=== PATIENT | male | born 1985 | race Caucasian/White ===

== ENCOUNTER 2017-01-28 15:57 | Inpatient (IN) | payer OTHER ==
[2017-01-28 17:55] VITALS: BMI 25.2
--- NOTE | 2017-01-28 20:13 | HP ---
Admission ROS [facility] Chief Complaint: Seeking rehab services Allergies/Adverse Reactions: Allergies Allergy/AdvReac Type Severity Reaction Status Date / Time No Known Allergies Allergy Verified 01/28/17 18:32 History of Present Illness: 31 y.o. man completed detox on 01/28/17 at [facility]. 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 Reports having a 1 year history drug abstinence. This is his first admission into rehab. Exam Limitations: No Limitations - Ebola screening Have you traveled outside of the country in the last 21 days: No Have you had contact with anyone from an Ebola affected area: No Have you been sick,other than usual withdrawal symptoms: No - Review of Systems Constitutional: Chills, Changes in sleep EENT: reports: No Symptoms Reported Respiratory: reports: No Symptoms reported Cardiac: reports: No Symptoms Reported GI: reports: No Symptoms Reported : reports: No Symptoms Reported Musculoskeletal: reports: No Symptoms Reported Integumentary: reports: No Symptoms Reported Neuro: reports: No Symptoms reported Endocrine: reports: No Symptoms Reported Hematology: reports: No Symptoms Reported Psychiatric: reports: Mood/Affect Appropiate, Orientated x3 Other Systems: Reviewed and Negative Patient History - Patient Medical History Hx Anemia: No Hx Asthma: No Hx Chronic Obstructive Pulmonary Disease (COPD): No Hx Cancer: No Hx Cardiac Disorders: No Hx Congestive Heart Failure: No Hx Hypertension: No Hx Pacemaker: No HX Cerebrovascular Accident: No Hx Seizures: No Hx Dementia: No Hx Diabetes: No Hx Gastrointestinal Disorders: No Hx Liver Disease: No Hx Genitourinary Disorders: No Hx Sexually Transmitted Disorders: No Hx Renal Disease (ESRD): No Hx Thyroid Disease: No Hx Human Immunodeficiency Virus (HIV): No Hx Hepatitis C: No Hx Depression: No Hx Suicide Attempt: No Hx Bipolar Disorder: No Hx Schizophrenia: No - Patient Surgical History Past Surgical History: No - PPD History Previous Implant?: No PPD to be Administered?: Yes - Reproductive History Patient is a Female of Child Bearing Age (11 -55 yrs old): No - Smoking Cessation Smoking history: Current every day smoker Have you smoked in the past 12 months: Yes Aproximately how many cigarettes per day: 10 Hx Chewing Tobacco Use: Yes Initiated information on smoking cessation: Yes 'Breaking Loose' booklet given: 01/28/17 - Substance & Tx. History Hx Alcohol Use: No Hx Substance Use: Yes Substance Use Type: Heroin, Opiates Hx Substance Use Treatment: Yes (Completed detox on 01/28/17 at [facility] ; never did rehab ) - Substances Abused Heroin Route: Inhalation Frequency: Daily Amount used: 4 Age of first use: 30 Date of Last Use: 01/25/17 Oxycontin Route: Oral Frequency: Daily Amount used: 50mg Age of first use: 20 Date of Last Use: 01/25/17 Alprazolam (Xanax) Route: Oral Frequency: Daily Amount used: 4mg Age of first use: 20 Date of Last Use: 01/26/17 Family Disease History - Family Disease History Family Disease History: Diabetes: Father (Opioid dependence ), Heart Disease: Grandparent, Other: Father Admission Physical Exam [facility] - Vital Signs Vital Signs: Vital Signs - 24 hr 01/28/17 17:52 Temperature 97.9 F Pulse Rate 69 Respiratory 18 Rate Blood Pressure 126/59 - Physical General Appearance: Yes: No Apparent Distress, Nourished, Appropriately Dressed HEENTM: Yes: Hearing grossly Normal, Normocephalic, Normal Voice Respiratory: Yes: Lungs Clear, Normal Breath Sounds, No Respiratory Distress, No Accessory Muscle Use Neck: Yes: No masses,lesions,Nodules, Trachea in good position Breast: Yes: Breast Exam Deferred Cardiology: Yes: Regular Rhythm, Regular Rate Abdominal: Yes: Normal Bowel Sounds, Non Tender Genitourinary: Yes: Other (No complaints reported) Back: Yes: Normal Inspection Musculoskeletal: Yes: full range of Motion, Gait Steady Extremities: Yes: Normal Capillary Refill, Normal Inspection, Normal Range of Motion, Non-Tender Neurological: Yes: 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 NML intact, Fully Oriented, Alert, Motor Strength 5/5, Normal Mood/Affect, Normal Response Integumentary: Yes: Normal Color, Dry, Warm Lymphatic: Yes: Within Normal Limits - Diagnostic (1) Opioid dependence with withdrawal Current Visit: Yes Status: Chronic (2) Sedative, hypnotic or anxiolytic dependence with withdrawal, uncomplicated Current Visit: Yes Status: Chronic (3) Nicotine dependence Current Visit: Yes Status: Chronic Cleared for Admission [facility] - Detox or Rehab [facility] Level of Care: Observation Bed Claeared for Rehab Admission: Yes [facility] Breath Alcohol Content Breath Alcohol Content: 0 Urine Drug Screen - Results Drug Screen Negative: No Urine Drug Screen Results: MTD-Methadone
[2017-01-28] MEDS ORDERED: IBUPROFEN 400 MG TABLET (FP) PO PRN (20:38)
[2017-01-28] MEDS ORDERED: ACETAMINOPHEN 325 MG TABLET (FP) PO PRN (20:38)
[2017-01-28] MEDS ORDERED: guaiFENesin/D-METHORPHAN HB 10 ML UNIT-DOSE CUPS PO PRN (20:38)
[2017-01-28] MEDS ORDERED: MAGNESIUM CITRATE 300 ML BOTTLE PO PRN (20:38)
[2017-01-28] MEDS ORDERED: diphenhydrAMINE HCL 50 MG CAPSULE PO PRN (20:38)
[2017-01-28] MEDS ORDERED: LOPERAMIDE HCL 2 MG CAPSULE PO PRN (20:38)
[2017-01-28] MEDS ORDERED: P-EPHED 60MG/TRIPROLIDI 2.5MG TABLET PO PRN (20:38)
[2017-01-28] MEDS ORDERED: MENTHOL/PHENOL 1 EACH UD MM PRN (20:38)
[2017-01-28] MEDS ORDERED: MAG HYDROX/AL HYDROX/SIMETH 30 ML UNIT-DOSE CUP PO PRN (20:38)
[2017-01-28] MEDS ORDERED: MAGNESIUM HYDROX 2400MG/30ML ORAL SUSPENSION 30 ML CUP PO PRN (20:38)
[2017-01-28] MEDS ORDERED: TUBERCULIN PPD 5 TU/0.1ML VIAL ID ONE (22:32)
[2017-01-28] MEDS: THIAMINE HCL 100 MG TABLET (FP) PO SCH (22:34)
[2017-01-28] MEDS: hydrOXYzine PAMOATE 50 MG CAPSULE (FP) PO PRN (22:34)
[2017-01-28 23:12] LABS: URINE APPEARANCE SLCLOUDY; URINE BILIRUBIN NEGATIVE (NEGATIVE); URINE BLOOD NEGATIVE (NEGATIVE); URINE COLOR YELLOW; URINE GLUCOSE (UA) NEGATIVE (NEGATIVE); URINE KETONE NEGATIVE (NEGATIVE); URINE LEUK ESTERASE NEGATIVE (NEGATIVE); URINE NITRITE NEGATIVE (NEGATIVE); URINE PROTEIN NEGATIVE (NEGATIVE); URINE UROBILINOGEN NEGATIVE mg/dL (0.2-1.0)
[2017-01-29] MEDS: PRENATAL VITAMINS W/ FOLIC ACID TABLET (FP) PO SCH (10:40)
[2017-01-29] MEDS: NICOTINE POLACRILEX 2 MG GUM BUC PRN (10:43)
[2017-01-29] MEDS: hydrOXYzine PAMOATE 50 MG CAPSULE (FP) PO PRN (10:44)
--- NOTE | 2017-01-29 12:01 | HP ---
Psychiatrist Admission - Data Date of interview: 01/29/17 Admission source: [facility] Identifying data: This is the first 5N inpatient rehabilitation admission for this 31 year old single male residing in senior living, unemployed and supported by [facility]. Medical History: Good health, smokes cigarrettes 10 a day. Psychiatric History: Patient reports was diagnosed as Bipolar disorder, first psychiatric hospitalization at age of 20, reports his mother called 911, he was admitted to [facility], reports 10 subsequent hospitalizations after, most recent on May 2016. He was on diferent psychotropics over theyars states he does not like all medications andsince 05/18 not on any medications and does not wish to restart . Physical/Sexual Abuse/Trauma History: Patient denies history of sexual, physical and verbal abuse. Additional Comment: Reports having a 1 year history drug abstinence. Vital Signs: Vital Signs - 24 hr 01/28/17 01/29/17 01/29/17 17:52 00:46 03:25 Temperature 97.9 F Pulse Rate 69 Respiratory 18 18 16 Rate Blood Pressure 126/59 01/29/17 06:46 Temperature 97.4 F L Pulse Rate 69 Respiratory 16 Rate Blood Pressure 114/66 Allergies/Adverse Reactions: Allergies Allergy/AdvReac Type Severity Reaction Status Date / Time No Known Allergies Allergy Verified 01/28/17 18:32 Date of last physical exam: 01/28/17 Concur with the findings of this exam: Yes - Substance Abuse/Tx History Hx Alcohol Use: No Hx Substance Use: Yes Substance Use Type: Heroin (4 bags a day), Opiates (oxycodone) Hx Substance Use Treatment: Yes (detox, this the first rehab.) - Admission Criteria Previous failed treatment: Yes Poor recovery environment: Yes Comorbidities: Yes Lacks judgement: Yes Mental Status Exam - Mental Status Exam Alert and Oriented to: Time, Place, Person Cognitive Function: Grossly Intact Patient Appearance: Disheveled Mood: Hopeful Affect: Appropriate, Mood Congruent, Normal Range Patient Behavior: Appropriate, Cooperative Speech Pattern: Clear Voice Loudness: Normal Thought Process: Goal Oriented Thought Disorder: Not Present Hallucinations: Denies Suicidal Ideation: Denies Homicidal Ideation: Denies Insight/Judgement: Fair Sleep: Fair Appetite: Good Muscle strength/Tone: Normal Gait/Station: Normal Psychiatric Findings - Problem List ([place] 1, 2,3) (1) Nicotine dependence Current Visit: Yes Status: Chronic (2) Opioid dependence Current Visit: Yes Status: Acute (3) Sedative dependence Current Visit: Yes Status: Acute (4) Bipolar disorder Current Visit: Yes Status: Acute - Initial Treatment Plan Initial Treatment Plan: Will monitor progress as needed.
--- NOTE | 2017-01-29 12:33 | PN ---
[facility] Progress Note Note: withdrawal symptom,flexeril 10 mgs po tid prn,clonidine 0.1 mg po bid for 72 hrs
[2017-01-29] MEDS: cloNIDine HCL 0.1 MG TABLET PO SCH ×2 (13:13→21:37)
[2017-01-29] MEDS: CYCLOBENZAPRINE HCL 10 MG TABLET (FP) PO PRN ×2 (13:14→21:38)
[2017-01-29 15:28] LABS: MCH 30.2 pg (25.7-33.7); MCHC 33.5 g/dl (32.0-35.9); MEAN CELL VOLUME 90.3 fl (80-96); MEAN PLT VOLUME 8.9 fl (7.5-11.1); PLATELET COUNT 260 K/MM3 (134-434); RDW 12.7 % (11.9-15.9); WHITE BLOOD COUNT 5.9 K/mm3 (4.0-10.0)
[2017-01-29 16:02] LABS: ALBUMIN 4.1 g/dl (3.4-5.0); ALK PHOS 84 U/L (45-117); ANION GAP 6 (8-16); BILIRUBIN,TOTAL 0.3 mg/dL (0.2-1.0); CALCIUM 9.3 mg/dL (8.5-10.1); CO2 33 mmol/L (21-32); GLUCOSE,RANDOM 94 mg/dL (74-106); SGOT/AST 11 U/L (15-37); SGPT/ALT 19 U/L (12-78); TOT PROT 7.2 g/dl (6.4-8.2)
[2017-01-29] MEDS: THIAMINE HCL 100 MG TABLET (FP) PO SCH (21:37)
[2017-01-30] MEDS: PRENATAL VITAMINS W/ FOLIC ACID TABLET (FP) PO SCH (10:13)
[2017-01-30] MEDS: cloNIDine HCL 0.1 MG TABLET PO SCH ×2 (10:13→21:44)
[2017-01-30] MEDS: CYCLOBENZAPRINE HCL 10 MG TABLET (FP) PO PRN ×2 (10:14→21:46)
[2017-01-30] MEDS: THIAMINE HCL 100 MG TABLET (FP) PO SCH (21:44)
[2017-01-31] MEDS: CYCLOBENZAPRINE HCL 10 MG TABLET (FP) PO PRN ×2 (10:27→22:12)
[2017-01-31] MEDS: PRENATAL VITAMINS W/ FOLIC ACID TABLET (FP) PO SCH (10:27)
[2017-01-31] MEDS: cloNIDine HCL 0.1 MG TABLET PO SCH ×2 (10:27→22:10)
[2017-01-31] MEDS: hydrOXYzine PAMOATE 50 MG CAPSULE (FP) PO PRN (10:29)
[2017-01-31] MEDS: NICOTINE POLACRILEX 2 MG GUM BUC PRN (10:29)
--- NOTE | 2017-01-31 11:35 | EKG ---
Test Reason : Blood Pressure : / mmHG Vent. Rate : 060 BPM Atrial Rate : 060 BPM P-R Int : 132 ms QRS Dur : 096 ms QT Int : 390 ms P-R-T Axes : 049 052 -05 degrees QTc Int : 390 ms NORMAL SINUS RHYTHM T WAVE ABNORMALITY, CONSIDER INFEROLATERAL ISCHEMIA ABNORMAL ECG NO PREVIOUS ECGS AVAILABLE Confirmed by PAULIE ALDRICH MD ([id number]) on 01/31/2017 11:35:26 AM Referred By: Confirmed By:PAULIE ALDRICH MD
[2017-01-31] MEDS: THIAMINE HCL 100 MG TABLET (FP) PO SCH (22:10)
[2017-02-01] MEDS: hydrOXYzine PAMOATE 50 MG CAPSULE (FP) PO PRN ×3 (06:29→21:37)
[2017-02-01] MEDS: PRENATAL VITAMINS W/ FOLIC ACID TABLET (FP) PO SCH (10:34)
[2017-02-01] MEDS: cloNIDine HCL 0.1 MG TABLET PO SCH (10:34)
[2017-02-01] MEDS: CYCLOBENZAPRINE HCL 10 MG TABLET (FP) PO PRN ×2 (10:35→21:37)
[2017-02-01] MEDS: THIAMINE HCL 100 MG TABLET (FP) PO SCH (21:37)
[2017-02-02] MEDS: PRENATAL VITAMINS W/ FOLIC ACID TABLET (FP) PO SCH (10:21)
[2017-02-02] MEDS: hydrOXYzine PAMOATE 50 MG CAPSULE (FP) PO PRN ×2 (10:22→18:12)
[2017-02-02] MEDS: PANTOPRAZOLE 40 MG TABLET (FP) PO SCH (18:45)
[2017-02-02] MEDS: THIAMINE HCL 100 MG TABLET (FP) PO SCH (21:35)
[2017-02-02] MEDS: cloNIDine HCL 0.1 MG TABLET PO SCH (21:35)
[2017-02-02] MEDS: CYCLOBENZAPRINE HCL 10 MG TABLET (FP) PO SCH (21:35)
[2017-02-02] MEDS: NAPROXEN 500 MG TABLET (FP) PO SCH (21:35)
[2017-02-02] MEDS: NICOTINE POLACRILEX 2 MG GUM BUC PRN (21:37)
[2017-02-03] MEDS: CYCLOBENZAPRINE HCL 10 MG TABLET (FP) PO SCH ×3 (06:42→21:25)
[2017-02-03] MEDS: PRENATAL VITAMINS W/ FOLIC ACID TABLET (FP) PO SCH (10:22)
[2017-02-03] MEDS: PANTOPRAZOLE 40 MG TABLET (FP) PO SCH (10:23)
[2017-02-03] MEDS: cloNIDine HCL 0.1 MG TABLET PO SCH ×2 (10:23→21:25)
[2017-02-03] MEDS: NAPROXEN 500 MG TABLET (FP) PO SCH ×2 (10:23→21:25)
[2017-02-03] MEDS: NICOTINE POLACRILEX 2 MG GUM BUC PRN (14:45)
[2017-02-03] MEDS: THIAMINE HCL 100 MG TABLET (FP) PO SCH (21:25)
[2017-02-04] MEDS: CYCLOBENZAPRINE HCL 10 MG TABLET (FP) PO SCH ×3 (06:30→21:47)
[2017-02-04] MEDS: PRENATAL VITAMINS W/ FOLIC ACID TABLET (FP) PO SCH (10:18)
[2017-02-04] MEDS: PANTOPRAZOLE 40 MG TABLET (FP) PO SCH (10:18)
[2017-02-04] MEDS: NAPROXEN 500 MG TABLET (FP) PO SCH ×2 (10:18→21:47)
[2017-02-04] MEDS: cloNIDine HCL 0.1 MG TABLET PO SCH ×2 (11:00→21:48)
[2017-02-04] MEDS: THIAMINE HCL 100 MG TABLET (FP) PO SCH (21:47)
[2017-02-04] MEDS: NICOTINE POLACRILEX 2 MG GUM BUC PRN (21:48)
[2017-02-05] MEDS: CYCLOBENZAPRINE HCL 10 MG TABLET (FP) PO SCH ×3 (06:15→21:47)
[2017-02-05] MEDS: PANTOPRAZOLE 40 MG TABLET (FP) PO SCH (10:30)
[2017-02-05] MEDS: NAPROXEN 500 MG TABLET (FP) PO SCH ×2 (10:30→21:47)
[2017-02-05] MEDS: PRENATAL VITAMINS W/ FOLIC ACID TABLET (FP) PO SCH (10:30)
[2017-02-05] MEDS: cloNIDine HCL 0.1 MG TABLET PO SCH ×2 (10:30→21:47)
[2017-02-05] MEDS: NICOTINE POLACRILEX 2 MG GUM BUC PRN ×2 (10:32→21:48)
[2017-02-05] MEDS ORDERED: cloNIDine HCL 0.1 MG TABLET PO SCH (14:15)
[2017-02-05] MEDS: THIAMINE HCL 100 MG TABLET (FP) PO SCH (21:47)
[2017-02-06] MEDS: hydrOXYzine PAMOATE 50 MG CAPSULE (FP) PO PRN ×2 (01:01→23:52)
[2017-02-06] MEDS: CYCLOBENZAPRINE HCL 10 MG TABLET (FP) PO SCH ×3 (06:23→21:39)
[2017-02-06] MEDS: PANTOPRAZOLE 40 MG TABLET (FP) PO SCH (10:30)
[2017-02-06] MEDS: PRENATAL VITAMINS W/ FOLIC ACID TABLET (FP) PO SCH (10:30)
[2017-02-06] MEDS: NAPROXEN 500 MG TABLET (FP) PO SCH ×2 (10:30→21:39)
[2017-02-06] MEDS: cloNIDine HCL 0.1 MG TABLET PO SCH ×2 (10:30→21:39)
[2017-02-06] MEDS: NICOTINE POLACRILEX 2 MG GUM BUC PRN ×3 (10:32→21:40)
[2017-02-06] MEDS: COLLOIDAL OATMEAL 1 BAR EACH TP PRN (14:34)
[2017-02-06] MEDS: THIAMINE HCL 100 MG TABLET (FP) PO SCH (21:39)
[2017-02-07] MEDS: CYCLOBENZAPRINE HCL 10 MG TABLET (FP) PO SCH ×3 (06:30→21:40)
[2017-02-07] MEDS: NICOTINE POLACRILEX 2 MG GUM BUC PRN ×4 (06:31→21:44)
[2017-02-07] MEDS: cloNIDine HCL 0.1 MG TABLET PO SCH ×2 (11:00→21:41)
[2017-02-07] MEDS: NAPROXEN 500 MG TABLET (FP) PO SCH ×2 (11:00→21:41)
[2017-02-07] MEDS: PRENATAL VITAMINS W/ FOLIC ACID TABLET (FP) PO SCH (11:00)
[2017-02-07] MEDS: PANTOPRAZOLE 40 MG TABLET (FP) PO SCH (11:00)
[2017-02-07] MEDS: THIAMINE HCL 100 MG TABLET (FP) PO SCH (21:41)
[2017-02-07] MEDS: hydrOXYzine PAMOATE 50 MG CAPSULE (FP) PO PRN (21:43)
[2017-02-08] MEDS: NICOTINE POLACRILEX 2 MG GUM BUC PRN ×2 (06:46→10:32)
[2017-02-08] MEDS: CYCLOBENZAPRINE HCL 10 MG TABLET (FP) PO SCH ×3 (06:46→21:42)
[2017-02-08] MEDS: NAPROXEN 500 MG TABLET (FP) PO SCH ×2 (10:30→21:42)
[2017-02-08] MEDS: PANTOPRAZOLE 40 MG TABLET (FP) PO SCH (10:30)
[2017-02-08] MEDS: cloNIDine HCL 0.1 MG TABLET PO SCH ×2 (10:30→21:42)
[2017-02-08] MEDS: PRENATAL VITAMINS W/ FOLIC ACID TABLET (FP) PO SCH (10:30)
[2017-02-08] MEDS: NICOTINE POLACRILEX 4 MG GUM BUC PRN ×2 (14:15→21:44)
[2017-02-08] MEDS: THIAMINE HCL 100 MG TABLET (FP) PO SCH (21:42)
[2017-02-08] MEDS: hydrOXYzine PAMOATE 50 MG CAPSULE (FP) PO PRN (21:43)
[2017-02-09] MEDS: CYCLOBENZAPRINE HCL 10 MG TABLET (FP) PO SCH ×3 (06:08→21:43)
[2017-02-09] MEDS: PRENATAL VITAMINS W/ FOLIC ACID TABLET (FP) PO SCH (10:25)
[2017-02-09] MEDS: NICOTINE POLACRILEX 4 MG GUM BUC PRN ×3 (10:25→21:45)
[2017-02-09] MEDS: PANTOPRAZOLE 40 MG TABLET (FP) PO SCH (10:25)
[2017-02-09] MEDS: cloNIDine HCL 0.1 MG TABLET PO SCH ×2 (10:25→21:43)
[2017-02-09] MEDS: NAPROXEN 500 MG TABLET (FP) PO SCH ×2 (10:25→21:43)
[2017-02-09] MEDS: THIAMINE HCL 100 MG TABLET (FP) PO SCH (21:43)
[2017-02-09] MEDS: hydrOXYzine PAMOATE 50 MG CAPSULE (FP) PO PRN (21:44)
[2017-02-10] MEDS: NICOTINE POLACRILEX 4 MG GUM BUC PRN ×3 (06:17→21:41)
[2017-02-10] MEDS: CYCLOBENZAPRINE HCL 10 MG TABLET (FP) PO SCH ×3 (06:17→21:40)
[2017-02-10] MEDS: NAPROXEN 500 MG TABLET (FP) PO SCH ×2 (10:11→21:40)
[2017-02-10] MEDS: PRENATAL VITAMINS W/ FOLIC ACID TABLET (FP) PO SCH (10:11)
[2017-02-10] MEDS: PANTOPRAZOLE 40 MG TABLET (FP) PO SCH (10:11)
[2017-02-10] MEDS: cloNIDine HCL 0.1 MG TABLET PO SCH ×2 (10:11→21:40)
[2017-02-10] MEDS: THIAMINE HCL 100 MG TABLET (FP) PO SCH (21:40)
[2017-02-11] MEDS: hydrOXYzine PAMOATE 50 MG CAPSULE (FP) PO PRN (00:37)
[2017-02-11] MEDS: CYCLOBENZAPRINE HCL 10 MG TABLET (FP) PO SCH ×3 (06:38→21:53)
[2017-02-11] MEDS: NICOTINE POLACRILEX 4 MG GUM BUC PRN ×4 (06:39→21:55)
[2017-02-11] MEDS: NAPROXEN 500 MG TABLET (FP) PO SCH ×2 (10:49→21:54)
[2017-02-11] MEDS: cloNIDine HCL 0.1 MG TABLET PO SCH ×2 (10:49→21:53)
[2017-02-11] MEDS: PANTOPRAZOLE 40 MG TABLET (FP) PO SCH (10:49)
[2017-02-11] MEDS: PRENATAL VITAMINS W/ FOLIC ACID TABLET (FP) PO SCH (10:49)
[2017-02-11] MEDS: THIAMINE HCL 100 MG TABLET (FP) PO SCH (21:53)
[2017-02-12] MEDS: hydrOXYzine PAMOATE 50 MG CAPSULE (FP) PO PRN ×2 (00:55→23:46)
[2017-02-12] MEDS: NICOTINE POLACRILEX 4 MG GUM BUC PRN ×6 (00:55→23:47)
[2017-02-12] MEDS: CYCLOBENZAPRINE HCL 10 MG TABLET (FP) PO SCH ×3 (06:27→21:35)
[2017-02-12] MEDS: NAPROXEN 500 MG TABLET (FP) PO SCH ×2 (10:23→21:36)
[2017-02-12] MEDS: cloNIDine HCL 0.1 MG TABLET PO SCH ×2 (10:23→21:35)
[2017-02-12] MEDS: PRENATAL VITAMINS W/ FOLIC ACID TABLET (FP) PO SCH (10:23)
[2017-02-12] MEDS: PANTOPRAZOLE 40 MG TABLET (FP) PO SCH (10:23)
[2017-02-12] MEDS: COLLOIDAL OATMEAL 1 BAR EACH TP PRN (18:26)
[2017-02-12] MEDS: THIAMINE HCL 100 MG TABLET (FP) PO SCH (21:35)
[2017-02-13] MEDS: CYCLOBENZAPRINE HCL 10 MG TABLET (FP) PO SCH ×3 (06:35→21:37)
[2017-02-13] MEDS: NICOTINE POLACRILEX 4 MG GUM BUC PRN ×5 (06:36→23:52)
[2017-02-13] MEDS: PRENATAL VITAMINS W/ FOLIC ACID TABLET (FP) PO SCH (10:26)
[2017-02-13] MEDS: cloNIDine HCL 0.1 MG TABLET PO SCH ×2 (10:26→21:37)
[2017-02-13] MEDS: PANTOPRAZOLE 40 MG TABLET (FP) PO SCH (10:26)
[2017-02-13] MEDS: NAPROXEN 500 MG TABLET (FP) PO SCH ×2 (10:26→21:37)
[2017-02-13] MEDS: THIAMINE HCL 100 MG TABLET (FP) PO SCH (21:37)
[2017-02-13] MEDS: hydrOXYzine PAMOATE 50 MG CAPSULE (FP) PO PRN (23:52)
[2017-02-14] MEDS: CYCLOBENZAPRINE HCL 10 MG TABLET (FP) PO SCH ×3 (06:37→21:25)
[2017-02-14] MEDS: NICOTINE POLACRILEX 4 MG GUM BUC PRN ×4 (06:37→21:25)
[2017-02-14] MEDS: PANTOPRAZOLE 40 MG TABLET (FP) PO SCH (10:53)
[2017-02-14] MEDS: NAPROXEN 500 MG TABLET (FP) PO SCH ×2 (10:54→21:25)
[2017-02-14] MEDS: cloNIDine HCL 0.1 MG TABLET PO SCH ×2 (10:54→21:25)
[2017-02-14] MEDS: PRENATAL VITAMINS W/ FOLIC ACID TABLET (FP) PO SCH (10:54)
[2017-02-14] MEDS: THIAMINE HCL 100 MG TABLET (FP) PO SCH (21:25)
[2017-02-15] MEDS: CYCLOBENZAPRINE HCL 10 MG TABLET (FP) PO SCH ×3 (06:18→21:51)
[2017-02-15] MEDS: PANTOPRAZOLE 40 MG TABLET (FP) PO SCH (10:31)
[2017-02-15] MEDS: cloNIDine HCL 0.1 MG TABLET PO SCH ×2 (10:31→21:51)
[2017-02-15] MEDS: NAPROXEN 500 MG TABLET (FP) PO SCH ×2 (10:31→21:51)
[2017-02-15] MEDS: PRENATAL VITAMINS W/ FOLIC ACID TABLET (FP) PO SCH (10:31)
[2017-02-15] MEDS: NICOTINE POLACRILEX 4 MG GUM BUC PRN ×4 (10:32→23:53)
[2017-02-15] MEDS: THIAMINE HCL 100 MG TABLET (FP) PO SCH (21:51)
[2017-02-15] MEDS: hydrOXYzine PAMOATE 50 MG CAPSULE (FP) PO PRN (23:52)
[2017-02-16] MEDS: CYCLOBENZAPRINE HCL 10 MG TABLET (FP) PO SCH ×3 (06:50→21:08)
[2017-02-16] MEDS: NICOTINE POLACRILEX 4 MG GUM BUC PRN ×4 (06:51→21:09)
[2017-02-16] MEDS: NAPROXEN 500 MG TABLET (FP) PO SCH ×2 (10:27→21:08)
[2017-02-16] MEDS: cloNIDine HCL 0.1 MG TABLET PO SCH ×2 (10:27→21:08)
[2017-02-16] MEDS: PANTOPRAZOLE 40 MG TABLET (FP) PO SCH (10:27)
[2017-02-16] MEDS: PRENATAL VITAMINS W/ FOLIC ACID TABLET (FP) PO SCH (10:27)
[2017-02-16] MEDS: THIAMINE HCL 100 MG TABLET (FP) PO SCH (21:08)
[2017-02-17] MEDS: CYCLOBENZAPRINE HCL 10 MG TABLET (FP) PO SCH ×3 (06:26→21:09)
[2017-02-17] MEDS: NICOTINE POLACRILEX 4 MG GUM BUC PRN ×5 (06:26→23:53)
[2017-02-17] MEDS: NAPROXEN 500 MG TABLET (FP) PO SCH ×2 (10:08→21:09)
[2017-02-17] MEDS: PRENATAL VITAMINS W/ FOLIC ACID TABLET (FP) PO SCH (10:08)
[2017-02-17] MEDS: PANTOPRAZOLE 40 MG TABLET (FP) PO SCH (10:08)
[2017-02-17] MEDS: cloNIDine HCL 0.1 MG TABLET PO SCH ×2 (10:09→21:09)
[2017-02-17] MEDS: hydrOXYzine PAMOATE 50 MG CAPSULE (FP) PO PRN ×2 (15:40→23:52)
[2017-02-17] MEDS: THIAMINE HCL 100 MG TABLET (FP) PO SCH (21:09)
[2017-02-18] MEDS: CYCLOBENZAPRINE HCL 10 MG TABLET (FP) PO SCH ×3 (06:14→21:09)
[2017-02-18] MEDS: NICOTINE POLACRILEX 4 MG GUM BUC PRN ×5 (06:15→21:11)
[2017-02-18] MEDS: PANTOPRAZOLE 40 MG TABLET (FP) PO SCH (09:54)
[2017-02-18] MEDS: cloNIDine HCL 0.1 MG TABLET PO SCH ×2 (09:54→21:09)
[2017-02-18] MEDS: PRENATAL VITAMINS W/ FOLIC ACID TABLET (FP) PO SCH (09:55)
[2017-02-18] MEDS: NAPROXEN 500 MG TABLET (FP) PO SCH ×2 (09:55→21:09)
[2017-02-18] MEDS: hydrOXYzine PAMOATE 50 MG CAPSULE (FP) PO PRN (18:31)
[2017-02-18] MEDS: THIAMINE HCL 100 MG TABLET (FP) PO SCH (21:09)
[2017-02-19] MEDS: CYCLOBENZAPRINE HCL 10 MG TABLET (FP) PO SCH ×3 (06:31→21:07)
[2017-02-19] MEDS: NICOTINE POLACRILEX 4 MG GUM BUC PRN ×3 (06:32→21:08)
[2017-02-19] MEDS: NAPROXEN 500 MG TABLET (FP) PO SCH ×2 (09:58→21:07)
[2017-02-19] MEDS: cloNIDine HCL 0.1 MG TABLET PO SCH ×2 (09:58→21:07)
[2017-02-19] MEDS: PRENATAL VITAMINS W/ FOLIC ACID TABLET (FP) PO SCH (09:58)
[2017-02-19] MEDS: PANTOPRAZOLE 40 MG TABLET (FP) PO SCH (09:58)
[2017-02-19] MEDS: COLLOIDAL OATMEAL 1 BAR EACH TP PRN (10:46)
[2017-02-19] MEDS: THIAMINE HCL 100 MG TABLET (FP) PO SCH (21:07)
[2017-02-20] MEDS: CYCLOBENZAPRINE HCL 10 MG TABLET (FP) PO SCH ×3 (06:28→21:04)
[2017-02-20] MEDS: NICOTINE POLACRILEX 4 MG GUM BUC PRN ×5 (06:28→21:06)
[2017-02-20] MEDS: PRENATAL VITAMINS W/ FOLIC ACID TABLET (FP) PO SCH (09:51)
[2017-02-20] MEDS: PANTOPRAZOLE 40 MG TABLET (FP) PO SCH (09:51)
[2017-02-20] MEDS: cloNIDine HCL 0.1 MG TABLET PO SCH ×2 (09:51→21:04)
[2017-02-20] MEDS: NAPROXEN 500 MG TABLET (FP) PO SCH ×2 (09:51→21:04)
[2017-02-20] MEDS: hydrOXYzine PAMOATE 50 MG CAPSULE (FP) PO PRN ×2 (17:43→21:05)
[2017-02-20] MEDS: THIAMINE HCL 100 MG TABLET (FP) PO SCH (21:04)
[2017-02-21] MEDS: CYCLOBENZAPRINE HCL 10 MG TABLET (FP) PO SCH ×3 (06:20→21:16)
[2017-02-21] MEDS: NICOTINE POLACRILEX 4 MG GUM BUC PRN ×5 (06:20→21:17)
[2017-02-21] MEDS: cloNIDine HCL 0.1 MG TABLET PO SCH ×2 (09:52→21:16)
[2017-02-21] MEDS: PRENATAL VITAMINS W/ FOLIC ACID TABLET (FP) PO SCH (09:52)
[2017-02-21] MEDS: PANTOPRAZOLE 40 MG TABLET (FP) PO SCH (09:52)
[2017-02-21] MEDS: NAPROXEN 500 MG TABLET (FP) PO SCH ×2 (09:52→21:15)
[2017-02-21] MEDS: hydrOXYzine PAMOATE 50 MG CAPSULE (FP) PO PRN (17:35)
[2017-02-21] MEDS: THIAMINE HCL 100 MG TABLET (FP) PO SCH (21:16)
[2017-02-22] MEDS: CYCLOBENZAPRINE HCL 10 MG TABLET (FP) PO SCH ×3 (06:31→21:07)
[2017-02-22] MEDS: NICOTINE POLACRILEX 4 MG GUM BUC PRN ×4 (06:31→21:09)
[2017-02-22] MEDS: NAPROXEN 500 MG TABLET (FP) PO SCH ×2 (09:50→21:07)
[2017-02-22] MEDS: cloNIDine HCL 0.1 MG TABLET PO SCH ×2 (09:50→21:07)
[2017-02-22] MEDS: PRENATAL VITAMINS W/ FOLIC ACID TABLET (FP) PO SCH (09:51)
[2017-02-22] MEDS: PANTOPRAZOLE 40 MG TABLET (FP) PO SCH (09:51)
[2017-02-22] MEDS: THIAMINE HCL 100 MG TABLET (FP) PO SCH (21:07)
[2017-02-23] MEDS: CYCLOBENZAPRINE HCL 10 MG TABLET (FP) PO SCH ×3 (06:34→21:55)
[2017-02-23] MEDS: NICOTINE POLACRILEX 4 MG GUM BUC PRN ×5 (06:34→21:57)
[2017-02-23] MEDS: PANTOPRAZOLE 40 MG TABLET (FP) PO SCH (09:55)
[2017-02-23] MEDS: PRENATAL VITAMINS W/ FOLIC ACID TABLET (FP) PO SCH (09:55)
[2017-02-23] MEDS: cloNIDine HCL 0.1 MG TABLET PO SCH ×2 (09:55→21:55)
[2017-02-23] MEDS: NAPROXEN 500 MG TABLET (FP) PO SCH ×2 (09:55→21:55)
[2017-02-23] MEDS: COLLOIDAL OATMEAL 1 BAR EACH TP PRN (14:18)
[2017-02-23] MEDS: hydrOXYzine PAMOATE 50 MG CAPSULE (FP) PO PRN (17:41)
[2017-02-23] MEDS: THIAMINE HCL 100 MG TABLET (FP) PO SCH (21:55)
[2017-02-24] MEDS: CYCLOBENZAPRINE HCL 10 MG TABLET (FP) PO SCH ×3 (06:27→21:14)
[2017-02-24] MEDS: NICOTINE POLACRILEX 4 MG GUM BUC PRN ×5 (06:28→21:15)
[2017-02-24] MEDS: cloNIDine HCL 0.1 MG TABLET PO SCH ×2 (09:41→21:14)
[2017-02-24] MEDS: NAPROXEN 500 MG TABLET (FP) PO SCH ×2 (09:41→21:14)
[2017-02-24] MEDS: PANTOPRAZOLE 40 MG TABLET (FP) PO SCH (09:41)
[2017-02-24] MEDS: PRENATAL VITAMINS W/ FOLIC ACID TABLET (FP) PO SCH (09:41)
[2017-02-24] MEDS: hydrOXYzine PAMOATE 50 MG CAPSULE (FP) PO PRN (18:03)
[2017-02-24] MEDS: THIAMINE HCL 100 MG TABLET (FP) PO SCH (21:14)
[2017-02-25] MEDS: CYCLOBENZAPRINE HCL 10 MG TABLET (FP) PO SCH (06:03)
[2017-02-25] MEDS: NICOTINE POLACRILEX 4 MG GUM BUC PRN (06:03)
[2017-02-25 06:26] VITALS: BP 114/62; PULSE 95; TEMP 98.1
[2017-02-25] MEDS: PANTOPRAZOLE 40 MG TABLET (FP) PO SCH (10:05)
[2017-02-25] MEDS: cloNIDine HCL 0.1 MG TABLET PO SCH (10:05)
[2017-02-25] MEDS: PRENATAL VITAMINS W/ FOLIC ACID TABLET (FP) PO SCH (10:05)
[2017-02-25] MEDS: NAPROXEN 500 MG TABLET (FP) PO SCH (10:05)
--- NOTE | 2017-02-25 10:16 | PN ---
Psychiatric Progress Note Vital Signs: Vital Signs Period Temp Pulse Resp BP Sys/Puentes Pulse Ox Last 24 Hr 98.1 F 95-97 16-18 114-131/62-72 Date of Session: 02/25/17 Chief Complaint:: discharge visit HPI: Patient has addressed opoiod, benzo, cocaine, nicotine dependence comorbid Bipolar disorder. ROS: WNL Current Medications: Active Medications Generic Name Dose Route Start Last Admin Trade Name Freq PRN Reason Stop Dose Admin Acetaminophen 650 mg 01/28/17 20:38 02/02/17 18:12 Tylenol - PO 650 mg Q4H PRN Administration PAIN Al Hydroxide/Mg Hydroxide 30 ml 01/28/17 20:38 02/07/17 14:27 Mylanta Oral Suspension - PO 30 ml Q6H PRN Administration DYSPEPSIA Clonidine 0.1 mg 02/05/17 22:00 02/25/17 10:05 Catapres - PO 0.1 mg BID CHRISS Administration Colloidal Oatmeal 1 applic 02/06/17 11:06 02/23/17 14:18 Aveeno Soap - TP 1 applic DAILY PRN Administration HYGEINE Cyclobenzaprine HCl 10 mg 02/02/17 22:00 02/25/17 06:03 Flexeril - PO 10 mg TID CHRISS Administration Diphenhydramine HCl 50 mg 01/28/17 20:38 Benadryl - PO HSMR1 PRN INSOMNIA Eucalyptus/Menthol/Phenol/Sorbitol 1 each 01/28/17 20:38 Cepastat Lozenge - MM Q4H PRN SORE THROAT Guaifenesin 10 ml 01/28/17 20:38 Robitussin Dm - PO Q6H PRN COUGH Hydroxyzine Pamoate 50 mg 01/28/17 20:38 02/24/17 18:03 Vistaril - PO 50 mg Q4H PRN Administration AGITATION Loperamide HCl 4 mg 01/28/17 20:38 Imodium - PO Q6H PRN DIARRHEA Magnesium Citrate 300 ml 01/28/17 20:38 Citroma - PO Q48H PRN CONSTIPATION Magnesium Hydroxide 30 ml 01/28/17 20:38 Milk Of Magnesia - PO DAILY PRN CONSTIPATION Naproxen 500 mg 02/02/17 22:00 02/25/17 10:05 Naprosyn - PO 500 mg BID CHRISS Administration Nicotine Polacrilex 4 mg 02/08/17 11:53 02/25/17 06:03 Nicorette Gum - BUC 4 mg Q2H PRN Administration NICOTINE REPLACEMENT RX Pantoprazole Sodium 40 mg 02/02/17 18:30 02/25/17 10:05 Protonix - PO 40 mg DAILY CHRISS Administration Multivit/Folic Acid/Iron 1 tab 01/29/17 10:00 02/25/17 10:05 Vitamins (Sjr) - PO 1 tab DAILY CHRISS Administration Pseudoephedrine/Triprolidine 1 combo 01/28/17 20:38 Actifed - PO TID PRN NASAL CONGESTION Thiamine HCl 100 mg 01/28/17 22:00 02/24/17 21:14 Vitamin B1 - PO 100 mg HS CHRISS Administration Current Side Effect: No Lab tests ordered: No Lab tests reviewed: Yes Provider note:: Patient has completed today this treatment and met his identified goals, will continue to address his issues at [facility] detention inpatient treatment program.He understands the negative consequences of using drugs on major life areas including physical and mental health. Coping skills and utilization of support system to prevent relapses have been discussed with the patient. Patient is stable for discharge today. Total face to face time:: 20 Mental Status Exam - Mental Status Exam Alert and Oriented to: Time, Place, Person Cognitive Function: Good Patient Appearance: Well Groomed Mood: Hopeful Affect: Appropriate, Mood Congruent Patient Behavior: Appropriate, Cooperative Speech Pattern: Clear, Appropriate Voice Loudness: Normal Thought Process: Intact, Goal Oriented Thought Disorder: Not Present Hallucinations: Denies Suicidal Ideation: Denies Homicidal Ideation: Denies Insight/Judgement: Fair Sleep: Fair Appetite: Good Muscle strength/Tone: Normal Gait/Station: Normal Psychiatric Treatment Plan - Problem List (1) Nicotine dependence Current Visit: Yes (2) Opioid dependence Current Visit: Yes (3) Sedative dependence Current Visit: Yes (4) Bipolar disorder Current Visit: Yes
== END 2017-02-25 11:17 | disposition home or self-care (01) | DRG 895 ==
LOC: YASAS 15:57 → Y5N 20:14
PROVIDERS: ADMIT Psychiatry & Neurology Psychiatry; ATTEND Psychiatry & Neurology Psychiatry
PROC: HZ42ZZZ Group Counseling for Substance Abuse Treatment, Cognitive-Behavioral (ICD-10-PCS; principal; 2017-01-28)
DX: F11.23 Opioid dependence with withdrawal (principal); F13.230 Sedative, hypnotic or anxiolytic dependence with withdrawal, uncomplicated; F17.210 Nicotine dependence, cigarettes, uncomplicated; F31.9 Bipolar disorder, unspecified; Z59.0 Homelessness
CPT/HCPCS: 36415; 80053; 81003; 85027; 86593; 93005; 93010